=== PATIENT | male | born 1975 | race Hispanic/Latino ===

== ENCOUNTER 2024-05-15 15:02 | Emergency (ER) | payer BC, OTHER ==
[~2024-05-15] VITALS: Ht 172.7 cm; Wt 99.8 kg
[~2024-05-15 15:02] MED LIST: CIPR500T10 PO; METR500T PO; metoprolol PO
--- NOTE | 2024-05-15 15:15 | ERN ---
ED Note History of Present Illness Stated Complaint: EARACHE AND FEVERS Chief Complaint: Earache Time Seen by MD: 15:05 Dictation: PATIENT IS A 49-YEAR-OLD FEMALE COMING IN TODAY WITH COMPLAINTS OF LEFT EAR PAIN LOW-GRADE FEVER FOR 2-3 DAYS. NO NAUSEA VOMITING NO HEADACHE. SEEN BY HIS PRIMARY CARE DOCTOR TWO DAYS AGO AND WAS GIVEN A SHOT OF SOME ANTIBIOTIC AND SOME DROPS WHICH HE SAID DID NOT WORK AFTER USING IT ONE DAY. DID NOT APPLY THE DROPS THIS MORNING. STATES HE WAS ALSO REFERRED TO AN ENT PHYSICIAN IN [facility] HOWEVER WOULD NOT BE GOING BECAUSE IT WAS TOO FAR FOR HIM TO DRIVE. Allergies: Coded Allergies: sulfamethoxazole (Unverified Allergy, Severe, RASH, 05/15/24) trimethoprim (Unverified Allergy, Severe, RASH, 05/15/24) amoxicillin (Unverified Allergy, Unknown, RASH, 05/15/24) phenazopyridine (Verified Allergy, Unknown, 03/09/15) Home Meds Active Scripts Ciprofloxacin HCl (Ciprofloxacin HCl) 500 Mg Tablet, 500 MG PO BID, #14 TAB Prov:JOHN PALACIOS MD 03/11/15 Metronidazole (Flagyl) 500 Mg Tablet, 500 MG PO TID, #21 TAB Prov:JOHN PALACIOS MD 03/11/15 Reported Medications [metoprolol] No Conflict Check, 100 MG PO DAILY 03/10/15 Past Medical History Past Medical History: Hypertension Surgical History: Other Surgical History Other: LT KNEE SX, ABD HERNIA PSYCH History: no pertinent psych hx RN Note Reviewed/Agreed w/PFSH: Yes Review of System Dictation CONSTITUTIONAL: NEGATIVE EXCEPT FOR HPI FEVER HEAD/FACE: NEGATIVE EXCEPT FOR HPI EENT: NEGATIVE EXCEPT FOR HPI LEFT EAR PAIN RESPIRATORY: NEGATIVE EXCEPT FOR HPI GASTROINTESTINAL/ABDOMINAL: NEGATIVE EXCEPT FOR HPI GENITOURINARY: NEGATIVE EXCEPT FOR HPI MUSCULOSKELETAL: NEGATIVE EXCEPT FOR HPI INTEGUMENTARY: NEGATIVE EXCEPT FOR HPI NEUROLOGICAL/PSYCH: NEGATIVE EXCEPT FOR HPI HEMATOLOGIC/LYMPHATIC: NEGATIVE EXCEPT FOR HPI ALL SYSTEMS NEGATIVE, EXCEPT NOTED ABOVE. 13 POINT REVIEW OF SYSTEMS ASSESSED AND ALL NEGATIVE EXCEPT FOR ABOVE. Initial Vital Sign VS Vital Signs Date Time Temp Pulse Resp B/P (MAP) Pulse Ox O2 Delivery O2 Flow Rate FiO2 05/15/24 15:04 102.7 95 18 145/83 98 Room Air 0 Physical Exam Dictation VITAL SIGNS REVIEWED GENERAL APPEARANCE: ALERT, ORIENTED X 3, MODERATE ACUTE DISTRESS, WELL DEVELOPED, NOURISHED. HEAD AND FACE: NON-TRAUMATIC. EYES: PERRL, PINK CONJUNCTIVAS, EYELID NO TRAUMA, ANTERIOR CHAMBER WITH ARCUS SENILIS. EARS: PINNAS INTACT AND NO SIGNS OF TRAUMA OR LEFT OTIC CANAL WITH SWELLING TENDERNESS. TM INTACT NO MASTOID TENDERNESS BILATERALLY. NOSE: NO DISCHARGE, NO BLEEDING. OROPHARYNX: MOUTH NORMAL, TONGUE PINK, PHARYNX CLEAR,NO ERYTHEMA, TONSILS NO EXUDATES, NO ABSCESSES NOTED, MUCOUS MEMBRANE MOIST NECK: SUPPLE, NON-TENDER, NO THYROMEGALY, NO MASSES, NO JVD, NO BRUITS BREAST:DEFERRED CHEST:NO TENDERNESS, NO CREPITUS, NO PARADOXICAL MOVEMENT, NO RETRACTIONS LUNGS:CLEAR, WELL-VENTILATED, SYMMETRIC, NO RALES, NO WHEEZING, NO RHONCHI, NO STRIDOR, GOOD BREATH SOUNDS BILATERALLY HEART: REGULAR RATE, REGULAR RHYTHM, NO MURMUR, NO GALLOPS VASCULAR: NO PERIPHERAL EDEMA, ABDOMEN: SOFT, POSITIVE BOWEL SOUNDS, NONDISTENDED, NO GUARDING, NONTENDER, NO REBOUND, NO MASSES NO HEPATOMEGALY, NO SPLENOMEGALY, NO NICOLE'S SIGN, NO HERNIAS. RECTAL: DEFERRED GENITAL: DEFERRED NEUROLOGICAL: NORMAL SPEECH, MOTOR FUNCTION INTACT, SENSORY FUNCTION INTACT MUSCULOSKELETAL: NECK NONTENDER, FULL RANGE OF MOTION, BACK NONTENDER, FULL RANGE OF MOTION, EXTREMITIES: NONTENDER, FULL RANGE OF MOTION SKIN: COLOR PINK, DRY, NO TURGOR, NO RASH, NO LACERATIONS, NO ABRASIONS, NO CONTUSIONS. LYMPHATIC: DEFERRED Results (Laboratory/Radiology) Laboratory/Radiology Laboratory Tests Test 05/15/24 15:18 Influenza Type A Antigen Negative For Type A Influenza Type B Antigen Negative For Type B SARS-CoV-2 Antigen (Rapid) PRESUMPTIVE NEGATIVE Group A Streptococcus Rapid negative (NEGATIVE) Labs Reviewed?: Yes ED Course ED Course Orders Procedure Category Date Status Time Ceftriaxone 1g Vial PHA 05/15/24 Complete (Rocephine 1g Inj) 15:30 Hydrocodone/Apap PHA 05/15/24 Complete 5/325 ([place] 5/325mg) 15:30 Ibuprofen 800 Mg Tab PHA 05/15/24 Complete (Motrin) 15:30 Covid19 (Sars Antigen LAB 05/15/24 Complete Rapid) 15:11 Influenza Type A & B, LAB 05/15/24 Complete Rapid 15:11 Rapid (Group A Strep) LAB 05/15/24 Complete 15:11 Current Medications Medications (Trade) Dose Ordered Sig/Carrie Route PRN Reason Start Time Stop Time Status Last Admin Dose Admin Acetaminophen/ Hydrocodone Bitart (NORco 5/325MG) 1 tab ONCE ONCE PO 05/15/24 15:30 05/15/24 15:31 DC 05/15/24 15:24 Ceftriaxone Sodium (ROCEphine 1G INJ) 1 gm ONCE ONCE IM 05/15/24 15:30 05/15/24 15:31 DC 05/15/24 15:23 Ibuprofen (moTRIN) 800 mg ONCE ONCE PO 05/15/24 15:30 05/15/24 15:31 DC 05/15/24 15:24 Vital Signs Date Time Temp Pulse Resp B/P (MAP) Pulse Ox O2 Delivery O2 Flow Rate FiO2 05/15/24 15:04 102.7 95 18 145/83 98 Room Air 0 ONE THOUSAND SIX HUNDRED, PATIENT STATES HE FEELS BETTER AFTER MEDICATIONS. DISCHARGED HOME TOLD TO DISCONTINUE NEOMYCIN DROPS, BEGIN CIPRODEX AND TAKE LEVAQUIN P.O.. ADDITIONALLY HE SAID HE WILL SEE THE PRIMARY CARE DOCTOR IN 2-3 DAYS. Medical Decision Making MDM MEDICAL DISCHARGE MAKING BASED ON SWABS FOR FLU COVID AND STREP DUE TO FEVER PATIENT DISCHARGED HOME WITH CIPRODEX DROPS AND LEVAQUIN TOLD KEEP HIS APPOINTMENT WITH HIS ENT DOCTOR IN 2-3 DAYS OR SEE HIS PRIMARY CARE DOCTOR FOR FOLLOW UP DX & DISP Disposition: Discharge Departure Impression: Primary Impression: Diffuse otitis externa, left ear Condition: Stable Scripts Levofloxacin (Levofloxacin) 500 Mg Tablet 1 TAB PO DAILY for 10 Days, #10 TAB 0 Refills Prov: BLACK KOO NP 05/15/24 Ciprofloxacin HCl/Hc (Cipro Hc Otic Susp) 0.2 %-1 % Otsus 3 DROP OTIC BID for 7 Days, #10 ML 0 Refills THREE DROPS TWICE A DAY WITH COTTON FOR SEVEN DAYS. Prov: BLACK KOO NP 05/15/24 Additional Instructions: FOLLOW-UP WITH PRIMARY CARE PROVIDER IN 1 TO 2 DAYS. TAKE MEDICATIONS DIRECTED HERE IN THE EMERGENCY ROOM. OKAY TO CONTINUE HOME MEDICATIONS UNLESS OTHERWISE DISCUSSED DURING YOUR VISIT IN THE EMERGENCY ROOM TODAY. RETURN TO YOUR NEAREST EMERGENCY ROOM IF SYMPTOMS WORSEN OR IF THERE IS NO IMPROVEMENT. CALL 911 IF YOU NEED IMMEDIATE ASSISTANCE. TAKE TYLENOL OR MOTRIN [id number] NEEDED AND IF NO CONTRAINDICATIONS ARE PRESENT. INCREASE ORAL HYDRATION. A WOUND CULTURE OR URINE CULTURE WAS ORDERED HERE IN THE EMERG ENCY ROOM DEPARTMENT PLEASE FOLLOW-UP WITH PRIMARY CARE PROVIDER AND ADVISE THEM TO GET REPEAT PORTS FROM OUR FACILITY. IF YOU HAD ANY CATALINA WRAP/SPLINTS THAT WERE APPLIED HERE, PLEASE DO NOT REMOVE THEM UNTIL YOU SEE YOUR PRIMARY CARE OR SPECIALTY. KEEP YOUR APPOINTMENT WITH YOUR ENT. USE COTTON WITH EAR DROPS AND STOPPED THE DROPPED FROM YOUR DOCTOR, TAKE ANTIBIOTICS BY MOUTH DIRECTED UNTIL GONE. Referrals: MATT WOOD (PCP) Time of Disposition: 15:59 I have reviewed the case, and I agree with, Diagnosis and Plan BLACK KOO NP May 15, 2024 15:15
[2024-05-15] MEDS: cefTRIAXone 1G VIAL IM ONE (15:23)
[2024-05-15] MEDS: HYDROcodone/APAP 5/325 1 TAB TABLET PO ONE (15:24)
[2024-05-15] MEDS: ibuPROFEN 800 MG TAB PO ONE (15:24)
[2024-05-15 15:31] LABS: RAPID GROUP A STREP negative (NEGATIVE)
[2024-05-15 15:41] LABS: COVID19 (SARS ANTIGEN RAPID) PRESUMPTIVE NEGATIVE (NEGATIVE)
[2024-05-15 15:42] LABS: INFLUENZA TYPE A Negative For Type A (NEGATIVE); INFLUENZA TYPE B Negative For Type B (NEGATIVE)
[2024-05-15] MEDS ORDERED: CIPOTIC OTIC (16:01)
[2024-05-15] MEDS ORDERED: LEVO-70 PO (16:01)
[2024-05-15 16:36] VITALS: BP 132/60; PULSE 81; RESP 18; TEMP 100; O2SAT 98
== END 2024-05-15 16:37 | disposition home or self-care (01) ==
LOC: EDH 15:02
DX: H60.312 Diffuse otitis externa, left ear (principal); I10 Essential (primary) hypertension; Z20.822 Contact with and (suspected) exposure to COVID-19; Z79.899 Other long term (current) drug therapy; Z88.0 Allergy status to penicillin; Z88.1 Allergy status to other antibiotic agents; Z88.2 Allergy status to sulfonamides; Z98.890 Other specified postprocedural states
CPT/HCPCS: 99283; 87426; 87880; 87804 ×2; 96372; J0696